=== PATIENT | male | born 1935 | race Caucasian/White ===

== ENCOUNTER 2021-01-20 17:32 | Inpatient (IN) | payer OTHER ==
[~2021-01-20] VITALS: Ht 188 cm; Wt 91.6 kg
--- NOTE | 2021-01-20 18:39 | NUR ---
Arrived to unit ambulating, admitted from physician's office as a direc admit, awake/alert/oriented, T/R self ad leandro, cont of B/B with BRPs per self ad leandro, denied pain/other discomfort at this time, call light/phone within reach, no s/s of acute distress observed.
[2021-01-21] VITALS: BP 124/60
[2021-01-21 03:48] VITALS: BP 119/67; BMI 26.0
[2021-01-21 04:00] VITALS: BP 106/58
[2021-01-21 07:28] LABS: BASOPHILS 0.5 % (0-2); EOSINOPHILS 2.4 % (0-7); HEMATOCRIT 30.5 % (42.0-54.0); HEMOGLOBIN 10.5 g/dL (13.5-17.5); LYMPHOCYTES 18.6 % (15-50); MCH 33.3 pg (26.0-34.0); MCHC 34.3 g/dL (31.0-37.0); MCV 97.1 fL (80.0-100.0); MEAN PLATELET VOLUME 8.1 fL (7.4-10.4); MONOCYTES 11.7 % (2-11); NEUTROPHILS 66.8 % (40-80); PLATELET COUNT 201 10x3/uL (130-400); RBC 3.14 10x6/uL (4.20-6.10); RDW 14.6 % (11.5-14.5)
[2021-01-21 07:44] LABS: ALKALINE PHOSPHATASE 43 U/L (30-120); ALT (SGPT) 16 U/L (10-68); BILIRUBIN - TOTAL 0.57 mg/dL (0.2-1.3); CALC OSMOLALITY 285 mosm/kg (275-300); CALCIUM 7.9 mg/dL (8.5-10.1); CARBON DIOXIDE 26.8 mmol/L (21.0-32.0); CHLORIDE - SERUM 110 mmol/L (98-107); CREATININE - SERUM 0.8 mg/dL (0.6-1.3); GLUCOSE 88 mg/dL (74-106); POTASSIUM - SERUM 4.3 mmol/L (3.5-5.1); PROTEIN - SERUM 5.7 g/dL (6.4-8.2); SODIUM 143 mmol/L (136-145); THYROID STIMULATING HORMONE 2.13 uIU/mL (0.36-3.74); UREA NITROGEN 17 mg/dL (7-18); eGFR NON AFRICAN AMERICAN > 90 mL/min (90-120)
--- NOTE | 2021-01-21 08:20 | NUR ---
Lying in bed, awake/alert/oriented, T/R self ad leandro, cont of B/B with BRPs per self ad leandro, denies pain/other discomfort at this time, call light/phone within reach, npo for procedure so no water, no s/s of acute distress observed.
[2021-01-21 11:18] LABS: BASOPHILS 0.4 % (0-2); EOSINOPHILS 1.4 % (0-7); HEMATOCRIT 32.7 % (42.0-54.0); HEMOGLOBIN 11.1 g/dL (13.5-17.5); LYMPHOCYTES 12.7 % (15-50); MCH 33.2 pg (26.0-34.0); MCHC 33.9 g/dL (31.0-37.0); MCV 98.1 fL (80.0-100.0); MEAN PLATELET VOLUME 7.5 fL (7.4-10.4); MONOCYTES 9.9 % (2-11); NEUTROPHILS 75.6 % (40-80); PLATELET COUNT 203 10x3/uL (130-400); RBC 3.34 10x6/uL (4.20-6.10); RDW 14.5 % (11.5-14.5); WBC 4.2 10x3/uL (4.8-10.8)
[2021-01-21 12:43] VITALS: Ht 188 cm; Wt 91.6 kg
--- NOTE | 2021-01-21 12:53 | HP ---
PATIENT: ALLAN LUBIN MEDICAL RECORD: [id number] ACCOUNT: [id number] LOCATION:[address] : 34 ADMISSION DATE: 01/20/21 PCP: ESTHELA GARLAND MD HISTORY AND PHYSICAL EXAMINATION DATE OF ADMISSION: 01/20/2021. CHIEF COMPLAINT: Black tarry stools, lightheadedness, weakness. HISTORY OF PRESENT ILLNESS: This is an 85-year-old remarkably healthy white male, who is on no prescription or [id number] medications. He states he started having black tarry stools 6 days ago. [place] was [place] of [place] and drove back in to be seen. He has never had this before. He states he has had episodes of dizziness and lightheadedness. He seems to be sleeping more. He just does not feel himself. He does not take any nonsteroidal anti-inflammatories. He does not take Pepto-Bismol. He does not have any prescription medicines at all. In my office, his blood pressure was good, but digital rectal exam showed black stool that was definitely heme positive. CBC showed normal white count 7.66, his hemoglobin is 11.8, and hematocrit 35.5. He is admitted for further evaluation of his melena and symptomatic anemia. PAST MEDICAL AND SURGICAL HISTORY: He has had BPH. He has had some mildly low platelets in the past. He had an EGD in 2012 showing some peptic ulcer disease. He had a fairly normal colonoscopy in [address] Holm. He has had a cholecystectomy. DRUG ALLERGIES: None. CURRENT MEDICATIONS: None. FAMILY HISTORY: His father is . He had colon cancer. Mother is . She had hypertension. SOCIAL HISTORY: He is and retired. Habits, he is a former smoker. Occasional alcohol. No illicit drug use. REVIEW OF SYSTEMS: GENERAL: He denies any recent weight loss. HEENT: No particular sinus or allergy problems. RESPIRATORY: No history of COPD or emphysema. CARDIAC: No history of heart trouble at all. GASTROINTESTINAL: Remote history of peptic ulcer disease as mentioned above on EGD 8 years ago. GENITOURINARY: He has had BPH, but currently on no medicines. MUSCULOSKELETAL: Few joint aches and pains, but nothing serious. NEUROLOGIC: No seizures. No migraines. PSYCHIATRIC: Denies depression or melancholia. PHYSICAL EXAMINATION: VITAL SIGNS: In my office, his blood pressure was 120/70, O2 sat 96%, heart rate 74, height 6 feet 2 inches, weight 211 for a BMI of 27.1. GENERAL: This is an elderly male who does not appear his stated age. He is awake and alert. He is obviously concerned about his condition now. SKIN: Warm and dry. HEENT: TMs are clear. Nose and throat are unremarkable. HISTORY AND PHYSICAL [id number] KIESSLING,ALLAN NECK: Supple. No JVD or bruit. HEART: Regular rate and rhythm without murmur. LUNGS: Clear. ABDOMEN: Soft, nontender. No guarding. No rebound. No mass. RECTAL: Exam done in my office showed normal sphincter tone. He had black stool that was heme positive. EXTREMITIES: No edema. LABORATORY DATA: CBC from my office showed white count of 7660, hemoglobin 11.8, hematocrit 35.5, MCV of 101, platelets were normal. Fecal occult blood test was positive. ASSESSMENT: 1. Melena. 2. Symptomatic anemia. PLAN: He is directly admitted to [facility]. Dr. Zuluaga has been consulted. We will get serial H&H's, start him on Protonix. Further workup per GI. TRANSINT:[id number] Voice Confirmation ID: [id number] DOCUMENT ID: [id number] ESTHELA GARLAND MD at 1253 CC: [id number] DICTATION DATE: 01/20/21 225 FR[address] END DRIVER: 01/21/21 0104 ADM IN [facility] [address] [id number]
[2021-01-21 13:35] VITALS: BP 111/45
--- NOTE | 2021-01-21 15:00 | NUR ---
Off unit for procedure.
--- NOTE | 2021-01-21 16:30 | NUR ---
Returned, awake/alert/oriented, denies needs at this time, call light/phone/water within reach, no s/s of acute distress observed.
[2021-01-21 16:50] LABS: BASOPHILS 0.4 % (0-2); EOSINOPHILS 1.5 % (0-7); HEMATOCRIT 33.5 % (42.0-54.0); HEMOGLOBIN 10.9 g/dL (13.5-17.5); LYMPHOCYTES 14.4 % (15-50); MCH 32.2 pg (26.0-34.0); MCHC 32.5 g/dL (31.0-37.0); MEAN PLATELET VOLUME 7.6 fL (7.4-10.4); MONOCYTES 10.4 % (2-11); NEUTROPHILS 73.3 % (40-80); PLATELET COUNT 199 10x3/uL (130-400); RBC 3.39 10x6/uL (4.20-6.10); RDW 14.5 % (11.5-14.5); WBC 4.1 10x3/uL (4.8-10.8)
[2021-01-21 19:24] VITALS: BP 105/49
[2021-01-21 23:35] LABS: BASOPHILS 0.6 % (0-2); EOSINOPHILS 1.7 % (0-7); HEMATOCRIT 30.6 % (42.0-54.0); HEMOGLOBIN 10.4 g/dL (13.5-17.5); LYMPHOCYTES 15.5 % (15-50); MCH 33.2 pg (26.0-34.0); MCHC 33.9 g/dL (31.0-37.0); MCV 98.1 fL (80.0-100.0); MONOCYTES 10.8 % (2-11); NEUTROPHILS 71.4 % (40-80); PLATELET COUNT 187 10x3/uL (130-400); RBC 3.12 10x6/uL (4.20-6.10); RDW 14.7 % (11.5-14.5); WBC 4.8 10x3/uL (4.8-10.8)
[2021-01-22 06:48] LABS: ALKALINE PHOSPHATASE 44 U/L (30-120); ALT (SGPT) 15 U/L (10-68); BILIRUBIN - TOTAL 0.54 mg/dL (0.2-1.3); CALC OSMOLALITY 282 mosm/kg (275-300); CARBON DIOXIDE 26.1 mmol/L (21.0-32.0); CHLORIDE - SERUM 109 mmol/L (98-107); GLUCOSE 87 mg/dL (74-106); POTASSIUM - SERUM 4.6 mmol/L (3.5-5.1); PROTEIN - SERUM 5.8 g/dL (6.4-8.2); SODIUM 142 mmol/L (136-145); UREA NITROGEN 15 mg/dL (7-18); eGFR NON AFRICAN AMERICAN 75 mL/min (90-120)
[2021-01-22 06:52] LABS: BASOPHILS 0.5 % (0-2); EOSINOPHILS 2.3 % (0-7); HEMATOCRIT 31.6 % (42.0-54.0); HEMOGLOBIN 10.8 g/dL (13.5-17.5); LYMPHOCYTES 15.1 % (15-50); MCH 33.7 pg (26.0-34.0); MCHC 34.3 g/dL (31.0-37.0); MCV 98.2 fL (80.0-100.0); MEAN PLATELET VOLUME 8.1 fL (7.4-10.4); MONOCYTES 11.1 % (2-11); PLATELET COUNT 206 10x3/uL (130-400); RBC 3.22 10x6/uL (4.20-6.10); RDW 14.8 % (11.5-14.5); WBC 4.4 10x3/uL (4.8-10.8)
--- NOTE | 2021-01-22 07:20 | NUR ---
Lying in bed, awake/alert/oriented, T/R self ad leandro, cont of B/B with BRPs per self ad leandro, denies pain/other discomfort at this time, call light/phone/water within reach.
[2021-01-22 07:43] VITALS: BP 100/56
[2021-01-22 09:00] VITALS: BP 114/59
[2021-01-22 10:47] LABS: BASOPHILS 0.5 % (0-2); EOSINOPHILS 1.2 % (0-7); HEMATOCRIT 33.8 % (42.0-54.0); HEMOGLOBIN 11.6 g/dL (13.5-17.5); LYMPHOCYTES 15.4 % (15-50); MCH 33.7 pg (26.0-34.0); MCHC 34.3 g/dL (31.0-37.0); MCV 98.2 fL (80.0-100.0); MEAN PLATELET VOLUME 7.4 fL (7.4-10.4); MONOCYTES 9.9 % (2-11); PLATELET COUNT 221 10x3/uL (130-400); RBC 3.44 10x6/uL (4.20-6.10); RDW 14.7 % (11.5-14.5); WBC 4.8 10x3/uL (4.8-10.8)
[2021-01-22 10:59] VITALS: BP 103/46
--- NOTE | 2021-01-22 11:05 | NUR ---
Manually afsaneh BP was 106/68, pt is asymptomatic...no dizziness, no new weakness, and no diaphoresis.
[2021-01-22 12:00] VITALS: BP 103/46
[2021-01-22] MEDS ORDERED: CARAFATE1 G PO (13:14)
[2021-01-22] MEDS ORDERED: PROTONIX40 MG PO (13:14)
--- NOTE | 2021-01-22 14:15 | NUR ---
Provided discharge instructions/education to which pt voiced understanding, discontinued IV access at this time, waiting for ride.
--- NOTE | 2021-01-22 14:55 | NUR ---
DC'd home to self care in stable condition via w/c accompanied by hospital staff and family member, no s/s of acute distress observed.
== END 2021-01-22 14:55 | disposition home or self-care (01) | DRG 368 ==
LOC: D.MS 17:32 → D.M2 18:27
PROVIDERS: Internal Medicine Gastroenterology; ADMIT Family Medicine; ATTEND Family Medicine
PROC: 0DJ08ZZ Inspection of Upper Intestinal Tract, Via Natural or Artificial Opening Endoscopic (ICD-10-PCS; principal; 2021-01-21 15:00)
DX: K21.01 Gastro-esophageal reflux disease with esophagitis, with bleeding (principal); K22.11 Ulcer of esophagus with bleeding; D64.9 Anemia, unspecified; Z87.891 Personal history of nicotine dependence